=== PATIENT | female | born 1970 | race Caucasian/White ===

== ENCOUNTER 2017-08-04 12:58 | Emergency (ER) | payer MEDICAID, SELFPAY ==
[2017-08-04 12:58] VITALS: BP 135/98; PULSE 106; RESP 14; TEMP 36.7; BMI 33.2
--- NOTE | 2017-08-04 13:33 | ED.VISSUMM ---
- ER Visit Summary Date of Service: 08/04/17 Chief Complaint: Back pain History of Present Illness: The patient is a 46 F who presents with back pain. This is been present for the past 3 days. She does have a history of prior similar symptoms. She notes that she has been walking a lot more lately as she does not currently have a car. She has been using tinazidine and Neurontin as well as ibuprofen at home with minimal relief. She complains of pain radiating into the right buttock hip and thigh. She does have a history of these symptoms as well. No numbness tingling weakness fever abdominal pain urinary retention or fecal incontinence. Physical Examination: Afebrile heart rate 106 vitals otherwise unremarkable Moist mucous membranes Heart regular rhythm slightly tachycardic Lungs are clear Abdomen soft Patient has no reproducible back tenderness Straight leg raise is negative bilaterally Extremities are nontender without edema Normal strength and sensation with 5 out of 5 dorsiflexion, plantarflexion, extensor hallucis longus Test Results: Not indicated Emergency Department Course and Treatment: Given the radicular symptoms we will place the patient on a prednisone burst. She was advised to follow-up with her primary care physician. She understands to return for new or worsening symptoms. She was discharged. Treatment Plan: [] Disposition: Admit Impression: Lumbar radiculopathy This note was generated with [employer] dictation software. It may contain incorrect words, spelling, and punctuation that were not noted in review of the chart prior to signing ED Disposition - Plan for ED Patient: Chief Complaint: Back Referrals: [facility] Doctor,Out of [Primary Care Provider] -
--- NOTE | 2017-08-04 13:35 | ED.DEP ---
ED Disposition - Plan for ED Patient: Chief Complaint: Back Instructions: ED Sciatica Prescriptions: Prednisone [Deltasone] 60 mg PO DAILY #15 tab Referrals: [facility] Doctor,Out of [Primary Care Provider] -
--- NOTE | 2017-08-04 13:49 | ED.RN ---
PT REQUESTING MEDICINE FOR PAIN. DR. BOLAND AWARE, NO NEW ORDER RECEIVED. PT MADE AWARE AND IS VERY UPSET AND CRYING. EMOTIONAL SUPPORT PROVIDED. PT GIVEN DISCHARGE INSTRUCTIONS AND PRESCRIPTION AND SHE STATES I DON'T WANT THIS, THIS ISN'T GOING TO HELP RIGHT NOW. PT CALLING FOR [facility].
[2017-08-04 13:51] VITALS: RESP 18
== END 2017-08-04 13:55 | disposition home or self-care (01) ==
LOC: ED 13:47
PROVIDERS: Emergency Provider Emergency Medicine; Family Provider Physician Assistant; PCP Physician Assistant
DX: M54.16 Radiculopathy, lumbar region (principal); E11.9 Type 2 diabetes mellitus without complications; R00.0 Tachycardia, unspecified; Z79.84 Long term (current) use of oral hypoglycemic drugs; Z79.899 Other long term (current) drug therapy
CPT/HCPCS: 99282

== ENCOUNTER 2017-08-21 18:03 | Emergency (ER) | payer MEDICAID, SELFPAY ==
[2017-08-21 18:04] VITALS: BP 137/109; PULSE 93; RESP 18; TEMP 37.2; O2SAT 98; BMI 33.9
--- NOTE | 2017-08-21 18:26 | ED.VISSUMM ---
- ER Visit Summary Date of Service: 08/21/17 Chief Complaint: Left hand injury History of Present Illness: The patient is a 47 F injury left hand last evening. Reaching under the couch would not get stuck by a staple. Tetanus unknown. States there was squirting of blood initially that was controlled. No anticoagulation medications. Complains of increasing pain. Tylenol Motrin 2 hours ago with no relief. Try getting with PCP office however they were closed. She did see pain management up to 2 months ago for back pain. Her PCP was right in her Percocet, however she states she stopped wanting to take them her last prescription was 2 months ago. Physical Examination: General: Alert and oriented ?3, no acute distress HEENT: Normocephalic, atraumatic. Moist mucosa membranes Neck: supple, nontender. Cardiovascular: Regular rate and rhythm, no murmurs Respiratory: Normal breath sounds, symmetric, no distress Abdomen: Soft, nontender, nondistended Extremities: Left upper extremity: No wrist pain. Left hand dorsal puncture at the proximal second MCP, there was mild erythema around puncture and area ecchymosis of 4 cm elliptical in the hand. Normal sensation distally. No active drainage. No streaking up the arm. Neuro: no focal neurological deficits. Test Results: Left hand x-ray: No fracture or radiopaque foreign bodies Emergency Department Course and Treatment: Patient given oxycodone due to complaint of her symptoms in the ED. X-ray is negative. Wound cleansed by nursing, bacitracin. Bruising was outlined. Discussed wound care with the patient. Monitor for infection. Not infected at this time. Fito wrap provided. Rice therapy. Continue Tylenol or Motrin as needed. Follow-up with PCP. All questions are answered. Treatment Plan: [] Disposition: Discharge Impression: 1. Left hand puncture wound 2. Left hand contusion 3. Tetanus update This note was generated with [employer] dictation software. It may contain incorrect words, spelling, and punctuation that were not noted in review of the chart prior to signing ED Disposition - Plan for ED Patient: Disposition: Home or Assisted Living Chief Complaint: Upper Extremity Injury Diagnosis: Puncture wound of left hand, Contusion of left hand Instructions: ED Wound Puncture General, ED Contusion Hand Referrals: Cherelle Gurrola PA [Primary Care Provider] - 5-7 Days
[2017-08-21] MEDS: Diphth,Pertuss(Acell),Tet Vac 0.5 ML Vial IM (18:38)
[2017-08-21] MEDS: oxyCODONE 5 MG Tablet PO (18:38)
--- NOTE | 2017-08-21 19:34 | RAD_ITS ---
STUDY: X-RAY - LEFT HAND REASON FOR EXAM: Female, 47 years old. Left hand pain. Stabbing injury to the top of the hand TECHNIQUE: 3 view(s) of the hand. COMPARISON: None. FINDINGS: Normal radiocarpal articulation. Normal distal radioulnar joint. Normal visualized carpal bones. Normal carpal articulations Normal carpometacarpal articulation of the thumb. Normal second through fifth carpometacarpal joints. Normal metacarpi. Normal metacarpophalangeal joint of the thumb. Normal interphalangeal joint of the thumb. Normal proximal and distal phalanges of the thumb. Normal metacarpophalangeal joints of the second through fifth fingers. Normal proximal and distal interphalangeal joints of the second through fifth fingers. Normal phalanges of the second through fifth fingers. The soft tissue structures are unremarkable. RAD/Hand Min 3 Views IMPRESSION: No acute findings Electronically Signed: Krzysztof Chahal DO at 18:58 EDT Tel , Service support ,
[2017-08-21] MEDS: BACITRACIN 15 GM Tube 1 APPLIC TOPICAL (19:37)
--- NOTE | 2017-08-21 19:39 | ED.RN ---
WOUND NOT CLEANED PER PT, ASKED WHAT WOULD BE USED TO CLEAN WOUND, THIS RN ADVISED NORMAL SALINE, PT DECLINED STAING SHE WOULD CLEAN HERSELF WITH PEROXIDE AT HOME. WOUND COVERED WITH SCAB, NO BLEEDING OR DRAINAGE, MEASURES 0.5 CM.
== END 2017-08-21 19:44 | disposition home or self-care (01) ==
PROVIDERS: Emergency Provider Emergency Medicine; Family Provider Physician Assistant; PCP Physician Assistant
DX: S61.432A Puncture wound without foreign body of left hand, initial encounter (principal); S60.222A Contusion of left hand, initial encounter; W26.8XXA Contact with other sharp object(s), not elsewhere classified, initial encounter; Y93.9 Activity, unspecified; Y92.9 Unspecified place or not applicable; Y99.9 Unspecified external cause status; Z23 Encounter for immunization; E11.9 Type 2 diabetes mellitus without complications; M54.9 Dorsalgia, unspecified; Z79.84 Long term (current) use of oral hypoglycemic drugs; Z79.899 Other long term (current) drug therapy
CPT/HCPCS: 73130; 90471; 90715; 99282

== ENCOUNTER 2021-12-02 12:37 | Emergency (ER) | payer MEDICAID, SELFPAY ==
[2021-12-02 12:37] VITALS: BP 119/94; PULSE 77; RESP 18; TEMP 35.9; O2SAT 99; BMI 34.8
--- NOTE | 2021-12-02 12:49 | EKG12_ITS ---
Test Reason : CP Blood Pressure : / mmHG Vent. Rate : 072 BPM Atrial Rate : 072 BPM P-R Int : 178 ms QRS Dur : 078 ms QT Int : 374 ms P-R-T Axes : 039 -06 024 degrees QTc Int : 409 ms Normal sinus rhythm Normal ECG Confirmed by ANTOINETTE ROMEO, STEFFI ([id number]), scientific editor KARRI KRAUS ([id number]) on 12/05/2021 10:12:19 AM Referred By: ES/PL Confirmed By:STEFFI CURRY MD
--- NOTE | 2021-12-02 13:05 | RAD_ITS ---
STUDY: X-RAY CHEST REASON FOR EXAM: Female, 51 years old. one time TECHNIQUE: Single AP portable view of the chest. COMPARISON: 08/27/2015 FINDINGS: The lungs are clear and expanded. There is no demonstrated pleural abnormality. Normal size heart. Normal mediastinum and isra. Normal visualized pulmonary arteries. Normal visualized aortic arch and descending thoracic aorta. Normal visualized thoracic spine. Normal visualized ribs, clavicles, and shoulders. There is no demonstrated abnormality of the visualized soft tissue structures of the upper abdomen. RAD/Chest 1 View (Portable) IMPRESSION: Normal x-ray examination of the chest. Electronically Signed: Germán Fields MD at 13:29 EDT ,
--- NOTE | 2021-12-02 13:05 | EX.ED.DYSGE1 ---
HPI <NOLVIA Corey - Last Filed: 12/02/21 14:45> History of Present Illness Chief Complaint: Chest Pain Narrative Narrative: 51-year-old female with history of anxiety, depression, diabetes presents to the emergency department with 2 to 3 days of sternal chest pain, left-sided chest pain. Patient had a positive COVID-19 test 6 days ago, states that she has been coughing, body aches, congestion. She called her doctor because she been having increased chest pain to the midsternal area as well as to the left side and he told her to go in for evaluation to the emergency department. Patient denies any fevers or chills. Patient [place] any nausea or vomiting. PFS <NOLVIA Corey - Last Filed: 12/02/21 14:45> [facility] Medical History (Updated 12/02/21 @ 14:[address] Barry Ramos, DO) COVID Home Medications gabapentin 300 mg capsule 900 mg PO TIDCM 06/10/14 [History Last Taken Unknown] tizanidine 4 mg tablet 6 mg PO PRN PRN Pain 08/13/16 [History Last Taken Unknown] buspirone 5 mg tablet 15 mg PO TID 03/03/17 [History Last Taken Unknown] fluoxetine 20 mg capsule (Prozac) 40 mg PO DAILY 08/04/17 [History Last Taken Unknown] metformin 500 mg 24 hr tablet,extended release 500 mg PO DAILY 08/04/17 [History Last Taken Unknown] Allergy/AdvReac Type Severity Reaction Status Date / Time STEFF Inhibitors Allergy Other Verified 12/02/21 12:41 amoxicillin trihydrate Allergy Itching Verified 12/02/21 12:41 [From Augmentin] lisinopril Allergy Other Verified 12/02/21 12:41 potassium clavulanate Allergy Itching Verified 12/02/21 12:41 [From Augmentin] ibuprofen AdvReac Other Verified 12/02/21 12:41 Social History Smoking Status: Former smoker ROS <NOLVIA Corey - Last Filed: 12/02/21 14:45> ROS ED ROS Narrative Constitutional: Negative for fever, chills, weight loss, weakness Eyes: Negative for vision loss, vision change, double vision ENT: Negative for any sore throat, ear pain, congestion Cardiovascular: Negative for any tightness, palpitations. Positive for midsternal to left-sided chest pain Respiratory: Negative for any cough, sputum production, hemoptysis, dyspnea, dyspnea on exertion, orthopnea Gastrointestinal: Negative for any abdominal pain, nausea, vomiting, diarrhea, constipation, blood in stool, blood in vomit : Negative for any urinary frequency, dysuria, retention, blood in urine Muscle skeletal: Negative for any muscle joint pain, stiffness, myalgias, arthralgias, neck pain, back pain Neurological: Negative for any headache, syncope, numbness or tingling, dizziness Skin: Negative for any rashes, lumps, itching, abrasions, lacerations Psychiatric: Negative for any depression, anxiety, stress, suicidal ideation, homicidal ideation Hematologic: Negative for any easy bruising, excessive bruising, easy bleeding Allergies: Negative for any eczema, hives, rash EXAM <NOLVIA Corey - Last Filed: 12/02/21 14:45> Physical Exam Narrative Exam Narrative: Vital signs reviewed. Patient appears to be in no respiratory distress, patient is stable. HEET: Head normocephalic atraumatic, TMs clear bilaterally. Posterior pharynx is clear, moist mucous membranes. Nares clear bilaterally. Neck: Supple with no lymphadenopathy or tenderness. No signs of meningismus, negative jolt sign. Cardiac: Regular rate and rhythm no murmurs gallops or rubs, equal peripheral pulses bilaterally. Respiratory: Lungs clear to auscultation bilaterally. No chest tenderness. Abdomen: Soft, nontender, nondistended. No abdominal bruit or pulsatile masses. No hepatosplenomegaly Extremities: No peripheral edema, no signs of gross trauma or deformity. Active full range of motion of all extremities. Neuro: Cranial nerves II through XII intact, no focal neurological deficits. Skin: Clean dry and intact with no rash, purpura, petechiae, vesicles or pustules. Backs/flank: No CVA tenderness, no midline spinal tenderness, no deformity. Psych: Normal mood and affect. No SI, HI or acute psychosis. Const Vital Signs: 12/02/21 12:37 12/02/21 13:18 Temperature 96.6 F L Temperature Source Temporal Pulse Rate 77 Respiratory Rate 18 Respiratory Effort Normal Non-Labored Blood Pressure 119/94 H Blood Pressure Mean 102 Pulse Ox 99 Oxygen Delivery Method Room Air Positive well nourished and well developed General Appearance ED: well developed <Dr. Barry Ramos, DO - Last Filed: 12/02/21 14:47> Physical Exam Const Vital Signs: 12/02/21 12:37 12/02/21 13:18 Temperature 96.6 F L Temperature Source Temporal Pulse Rate 77 Respiratory Rate 18 Respiratory Effort Normal Non-Labored Blood Pressure 119/94 H Blood Pressure Mean 102 Pulse Ox 99 Oxygen Delivery Method Room Air MDM <NOLVIA Corey - Last Filed: 12/02/21 14:45> MDM Lab Data Labs: Laboratory Results - last 24 hr 12/02/21 12/02/21 13:20 13:20 WBC 6.0 RBC 4.38 Hgb 14.1 Hct 40.3 MCV 92.0 MCH 32.2 H MCHC 35.0 RDW Std Deviation 41.9 RDW Coeff of Julian 12.3 Plt Count 187 MPV 10.7 Immature Gran % (Auto) 0.200 Neut % (Auto) 32.7 L Lymph % (Auto) 57.3 H Day % (Auto) 6.5 Eos % (Auto) 3.0 Baso % (Auto) 0.3 Absolute Neuts (auto) 2.0 Absolute Lymphs (auto) 3.43 Nucleated RBC % 0 Atypical Lymphocytes 2+ Platelet Estimate ADEQUATE RBC Morphology NORM C+C Sodium 137 Potassium 4.1 Chloride 105 Carbon Dioxide 26.0 Anion Gap 6 BUN 11 Creatinine 0.80 Estim Creat Clear Calc 95.08 Est GFR (MDRD) Af Amer 98 Est GFR (MDRD) Non-Af 81 BUN/Creatinine Ratio 13.8 Glucose 183 H Calcium 8.3 L Troponin I High Sens 4 Radiography Diagnostic Testing: Clinical Impression(s) from Imaging Studies Chest X-Ray 12/02/21 13:05 IMPRESSION: Normal x-ray examination of the chest. Electronically Signed: Germán Fields MD at 13:29 EDT , EKG Normal sinus rhythm: Attestation: I personally reviewed and interpreted this EKG as follows: Interpretation: Sinus Rhythm Comments: Normal sinus rhythm, rate of 72 bpm, TX 178 ms, QRS duration 78 ms, no acute ST elevation, no acute infarct noted. Treatment and Re-Evaluation Narrative: Patient appears well, patient appears nontoxic, vital signs are stable. Patient presents to the [facility] with midsternal chest discomfort for the last 2 days secondary to coughing, however she is concerned about a cardiac issue. Patient did receive a cardiac work-up.Patient's laboratory values show a normal CBC, patient's chemistries were unremarkable, patient's troponin was negative. EKG was unremarkable, showing no ectopy, [place]. Patient's chest x-ray showed no acute cardiopulmonary process entered by ER physician. Patient did receive IV Toradol, IV fluids. Patient on reevaluation did have decrease of symptoms. I believe the patient is having chest wall strain secondary to coughing secondary to the COVID. Patient will continue to use Tylenol, as well as maintain her hydration. She is happy with the plan of care instructed return for any worsening chest pain, shortness of breath. Patient is currently 6 days out of the window for any treatment such as Paxil bid. <Dr. Barry Ramos, DO - Last Filed: 12/02/21 14:47> [facility] Narrative Medical decision making narrative: I have personally performed a face to face assessment of the patient and have reviewed the KB Note. I performed a substantive portion of the visit including all aspects of the following. My salgado findings include: History: Patient presents with chest pain that became worse today. Patient states her pain is over her upper chest. Patient states it started out bilaterally but is now mainly over the left upper chest. Patient states it is worse with coughing. Patient denies any shortness of breath. Patient states she recently tested positive for COVID-19. Patient denies any fevers or chills. Patient denies any nausea or vomiting. Exam: Vital signs are stable. Patient is afebrile. Patient is in no acute distress. Oral mucosa is pink and moist. Neck is supple. Trachea is midline. There is no JVD. Heart was regular rate and rhythm. Lungs are clear and equal bilaterally. There is some reproducible tenderness over the left upper chest wall. Abdomen is soft. Bowel sounds are normal. There is no tenderness. Cranial nerves II through XII are intact. There are no focal motor or sensory deficits. Medical Decision Making: EKG was obtained. On my interpretation, it shows a normal sinus rhythm with a rate of 78. There are no acute ST or T wave changes. CBC was within normal limits. Basic metabolic profile was essentially within normal limits with the exception of an elevated glucose of 183. High-sensitivity troponin was normal. Portable 1 view chest x-ray was obtained. On my interpretation, lung lindsey are clear. There is normal cardiac silhouette. Bony thorax is normal. There is no acute process noted. Radiologist also interpreted the x-ray and agrees. Patient was advised of her findings. Patient has a HEART score of 2. Patient was advised that this is low risk for acute cardiac event. Patient was instructed to follow-up with her primary care physician in 5 to 7 days. Patient understood and was agreeable with the plan. All questions were answered. Lab Data Attestation: I reviewed the patient's lab results. Labs: Laboratory Results - last 24 hr 12/02/21 12/02/21 13:20 13:20 WBC 6.0 RBC 4.38 Hgb 14.1 Hct 40.3 MCV 92.0 MCH 32.2 H MCHC 35.0 RDW Std Deviation 41.9 RDW Coeff of Julian 12.3 Plt Count 187 MPV 10.7 Immature Gran % (Auto) 0.200 Neut % (Auto) 32.7 L Lymph % (Auto) 57.3 H Day % (Auto) 6.5 Eos % (Auto) 3.0 Baso % (Auto) 0.3 Absolute Neuts (auto) 2.0 Absolute Lymphs (auto) 3.43 Nucleated RBC % 0 Atypical Lymphocytes 2+ Platelet Estimate ADEQUATE RBC Morphology NORM C+C Sodium 137 Potassium 4.1 Chloride 105 Carbon Dioxide 26.0 Anion Gap 6 BUN 11 Creatinine 0.80 Estim Creat Clear Calc 95.08 Est GFR (MDRD) Af Amer 98 Est GFR (MDRD) Non-Af 81 BUN/Creatinine Ratio 13.8 Glucose 183 H Calcium 8.3 L Troponin I High Sens 4 Radiography Chest X-Ray - ED: 1 View, Read by ED Physician, Read by Radiologist, Normal and No Acute Disease Diagnostic Testing: Clinical Impression(s) from Imaging Studies Chest X-Ray 12/02/21 13:05 IMPRESSION: Normal x-ray examination of the chest. Electronically Signed: Germán Fields MD at 13:29 EDT , Discharge Plan Triage Chief Complaint: Chest Pain ED Midlevel Provider: Austen Garcia ED Provider: Barry Ramos Dx/Rx/DC Orders Clinical Impression: COVID-19, Chest wall muscle strain, Cough, Chest pain Instructions: Caring for Someone Who Has COVID-19, ED Cough Chronic Uncertain Cause Adult, ED Chest Wall Strain Prescriptions: No Action gabapentin 300 MG capsule 900 mg PO TIDCM Label Comments: neuropathy/pain tizanidine 4 MG tablet 6 mg PO PRN PRN (Reason: Pain) buspirone 5 MG tablet 15 mg PO TID fluoxetine [Prozac] 20 MG capsule 40 mg PO DAILY metformin 500 MG [id number] 500 mg PO DAILY Primary Care Provider: Cherelle Gurrola Referrals: Cherelle Gurrola PA [Primary Care Provider] - 5-7 Days Activity Restrictions/Additional Instructions: Maintain hydration, please follow-up with your physician. Use Tylenol as needed. Perform gentle stretching. Disposition Disposition: Home, Self Care
[2021-12-02] MEDS: 0.9% Normal Saline 1,000 ML 1000 ML IV (13:16)
[2021-12-02] MEDS: Ketorolac 15 MG/ML Vial IV (13:16)
[2021-12-02 13:34] LABS: Absolute Lymphocyte Count 3.43 X10^3/uL (0.83-4.51); Basophil# 0.02 X10^3/uL; Basophil% 0.3 % (0-1); Eosinophil# 0.18 X10^3/uL; Hematocrit 40.3 % (37-47); Hemoglobin 14.1 g/dL (12.0-15.0); Lymphocyte # 3.43 X10^3/ul (0.83-4.51); Lymphocyte % 57.3 % (19-41); Mean Corpuscular Hgb 32.2 pg (27.0-32.0); Mean Platelet Vol. 10.7 fl (6.2-12.0); Monocyte# 0.39 X10^3/uL; Monocyte% 6.5 % (0-10); NRBC Flagged by Analyzer 0 % (0-5); Neutrophil # 1.96 X10^3/uL (2.7-7.7); Neutrophil % 32.7 % (47-70); POSITIVE MORPHOLOGY YES; Platelet Count 187 K/mm3 (150-450); RBC Distribution Width CV 12.3 % (11.6-14.6); RBC Distribution Width SD 41.9 fl (35.1-43.9); Red Blood Count 4.38 M/mm3 (4.2-5.4)
[2021-12-02 13:44] LABS: Differential Indicated SCAN CRITERIA MET
[2021-12-02 13:48] LABS: Anion Gap 6 (5-15); BUN 11 mg/dL (7-18); BUN/Creat Ratio 13.8 RATIO (10-20); Calcium,Total 8.3 mg/dL (8.5-10.1); Chloride 105 mmol/L (98-107); EST Glomerular Filtration Rate 81 mL/min (>60); Est Glom Filt Rate - Afr Amer 98 mL/min (>60); Estimated Creatinine Clearance 95.08 ml/min; Glucose 183 mg/dL (74-106); Potassium 4.1 mmol/L (3.5-5.1); Sodium Level 137 mmol/L (136-145); Troponin-I HS 4 pg/mL (3.0-54.0)
[2021-12-02 14:41] LABS: Atypical Lymphocyte 2+ %
[2021-12-02 14:42] LABS: Platelet Estimate ADEQUATE (ADEQ); Red Cell Morphology NORM C+C NORMAL (NORM C&C)
== END 2021-12-02 14:56 | disposition home or self-care (01) ==
PROVIDERS: Nurse Practitioner; Emergency Provider Emergency Medicine; PCP Physician Assistant; Visit Provider Emergency Medicine
DX: U07.1 COVID-19 (principal); E11.9 Type 2 diabetes mellitus without complications; S29.011A Strain of muscle and tendon of front wall of thorax, initial encounter; X58.XXXA Exposure to other specified factors, initial encounter; F32.A Depression, unspecified; F41.9 Anxiety disorder, unspecified; Z79.84 Long term (current) use of oral hypoglycemic drugs; Z79.899 Other long term (current) drug therapy; Z87.891 Personal history of nicotine dependence
CPT/HCPCS: 71045; 80048; 84484; 85025; 93005; 96361; 96374; 99284; J7030; A4216

== ENCOUNTER 2021-12-25 14:54 | Emergency (ER) | payer MEDICAID, SELFPAY ==
[2021-12-25 15:02] VITALS: BP 133/92; PULSE 77; RESP 7; TEMP 36.3; O2SAT 97; BMI 34.8
--- NOTE | 2021-12-25 15:30 | RAD_ITS ---
STUDY: X-RAY - THORACIC SPINE REASON FOR EXAM: Female, 51 years old. fall back pain TECHNIQUE: XR Spine Thoracic 3 Views COMPARISON: None FINDINGS: Normal kyphosis of the thoracic spine. There is no substantial scoliosis. There is multilevel endplate spondylosis of the thoracic vertebrae. There is multilevel disc space narrowing of the thoracic spine. The soft tissue structures are unremarkable. RAD/Thoracic Spine 3 Views IMPRESSION: There are degenerative changes as noted above. Electronically Signed: Nirmal Moss MD at 16:34 EDT ,
--- NOTE | 2021-12-25 15:30 | RAD_ITS ---
STUDY: X-RAY XR Forearm 2 Views REASON FOR EXAM: Female, 51 years old. PAIN TECHNIQUE: XR Forearm 2 Views LEFT COMPARISON: None. FINDINGS: There is no demonstrated soft tissue swelling. Normal visualized radius. Normal visualized ulna. RAD/Forearm 2 Views IMPRESSION: No acute findings Electronically Signed: Nirmal Moss MD at 16:34 EDT ,
--- NOTE | 2021-12-25 15:30 | RAD_ITS ---
STUDY: XR Pelvis 1 or 2 Views 12/25/2021 3:45 PM REASON FOR EXAM: Female, 51 years old. fall pain TECHNIQUE: XR Pelvis 1 or 2 Views COMPARISON: None FINDINGS: There is a non-specific bowel gas pattern. Normal visualized soft tissue structures.There are degenerative changes of the lumbar spine. Normal bilateral iliac wings, sacroiliac joints and visualized sacrum. Normal visualized bilateral superior and inferior pubic rami. There are degenerative changes of the pubic symphysis with articular narrowing and sclerosis. Normal ischial tuberosities. Normal visualized right femoral head. Normal right acetabulum. Normal right hip joint. Normal visualized left femoral head. Normal left acetabulum. Normal left hip joint. RAD/Pelvis 1 or 2 Views IMPRESSION: No acute findings. Electronically Signed: Nirmal Moss MD at 16:29 EDT ,
--- NOTE | 2021-12-25 15:30 | RAD_ITS ---
STUDY: X-RAY - LUMBAR SPINE REASON FOR EXAM: Female, 51 years old. Back pain fall TECHNIQUE: XR Spine Lumbar 2 or 3 Views COMPARISON: None FINDINGS: Normal lumbar lordosis. There is no substantial scoliosis. There is a normal alignment of the vertebrae. There is multilevel endplate spondylosis of the lumbar vertebrae. There is multi-level degenerative disc disease with multi-level disc space narrowing. There are atherosclerotic vascular calcifications. The soft tissue structures are unremarkable. Vacuum disc phenomenon. RAD/Lumbar Spine 2 or 3 Views IMPRESSION: Degenerative changes of the spine, as detailed above. Electronically Signed: Nirmal Moss MD at 16:33 EDT ,
--- NOTE | 2021-12-25 15:30 | RAD_ITS ---
EXAM: XR RIGHT TIBIA AND FIBULA, 2 VIEWS CLINICAL INDICATION: fall pain TECHNIQUE: Frontal and lateral views of the right tibia and fibula. This report was created using [employer] technology. COMPARISON: None. FINDINGS: BONES/JOINTS: There is a calcaneal spur. There is an enthesophyte involving the posterior superior calcaneus at the site of insertion of the Achilles tendon. No acute fracture. No subluxation. Normal alignment. Preservation of the joint space. No sclerotic or destructive changes observed. SOFT TISSUES: Mild soft tissue swelling around the lateral malleolus. No radiopaque foreign body. RAD/Tibia & Fibula 2 Views IMPRESSION: Mild soft tissue swelling around the lateral malleolus. Electronically Signed: Nirmal Moss MD at 16:35 EDT ,
--- NOTE | 2021-12-25 15:32 | ED.VIS.FALL ---
HPI HPI - Fall History of Present Illness Chief Complaint: Fall Informant: patient Occured/Mechanism Occurred: Today Pain/Injury Pain Location: back, upper extremity and lower extremity Current Severity: Moderate Maximum Severity: Severe Narrative Narrative: Patient presents after fall at a local store. She states that she fell on a wet floor landing on her right hip and trying to brace herself with her left arm. She complains of pain from her right hip down to her right ankle along with her left forearm. She complains of back pain throughout the thoracic and lumbar region. She denies striking her head or loss of consciousness. She takes baby aspirin daily but no other blood thinners. [facility] Medical History Anxiety COVID Depression Diabetes Former smoker Hypertension Home Medications gabapentin 300 mg capsule 600 mg PO TIDCM 06/10/14 [History Last Taken Unknown] fluoxetine 20 mg capsule (Prozac) 40 mg PO DAILY 08/04/17 [History Last Taken Unknown] metformin 500 mg 24 hr tablet,extended release 1,000 mg PO DAILY 08/04/17 [History Last Taken Unknown] aspirin 81 mg tablet,delayed release 81 mg PO DAILY 12/25/21 [History Last Taken Unknown] atorvastatin 40 mg tablet 40 mg PO QHS 12/25/21 [History Last Taken Unknown] cyclobenzaprine 10 mg tablet 10 mg PO BID PRN muscle spasm #10 tabs 12/25/21 [Rx Last Taken Unknown] glimepiride 1 mg tablet 1 mg PO DAILY 12/25/21 [History Last Taken Unknown] hydrocodone-acetaminophen 5-325mg 5mg-325mg 1 tab PO Q6H PRN pain 3 days #10 tabs 12/25/21 [Rx Last Taken Unknown] loratadine 10 mg tablet 10 mg PO DAILY 12/25/21 [History Last Taken Unknown] metoprolol succinate 25 mg tablet,extended release 24 hr 25 mg PO DAILY 12/25/21 [History Last Taken Unknown] ranolazine 500 mg tablet,extended release,12 hr 500 mg PO BID 12/25/21 [History Last Taken Unknown] Allergy/AdvReac Type Severity Reaction Status Date / Time FITO Inhibitors Allergy wheezing Verified 12/25/21 14:57 amoxicillin trihydrate Allergy Itching Verified 12/25/21 14:57 [From Augmentin] lisinopril Allergy wheezing Verified 12/25/21 14:57 potassium clavulanate Allergy Itching Verified 12/25/21 14:57 [From Augmentin] ibuprofen AdvReac Other Verified 12/25/21 14:57 Surgical History History of cholecystectomy History of hysterectomy Social History Smoking Status: Former smoker ROS ROS ED Constitutional Constitutional ED: Denies chills or fever(s) Eyes Eyes: Denies change in vision or discharge from eye(s) ENT ENT ED: Denies discharge from eye(s), rhinorrhea or sore throat Cardiovascular Cardiovascular: Denies chest pain or palpitations Respiratory/Chest Respiratory/Chest: Denies cough or dyspnea Gastrointestinal Gastrointestinal: Denies abdominal pain, diarrhea, nausea or vomiting Genitourinary Genitourinary ED: Denies difficulty urinating or dysuria Musculoskeletal Musculoskeletal: Reports arthralgias, back pain and extremity pain Integumentary Denies Abrasions or rash Neurologic Neurologic: Denies headache(s) or weakness Psychiatric Psychiatric: Denies anxiety or depression Allergic/Immunologic Allergic/Immunologic ED: Denies lip swelling or urticaria EXAM Physical Exam Const Vital Signs: 12/25/21 15:02 12/25/21 15:18 Temperature 97.3 F L Temperature Source Temporal Pulse Rate 77 Respiratory Rate 7 L Respiratory Effort Normal Respiratory Depth Normal Respiratory Pattern Normal Blood Pressure 133/92 H Blood Pressure Mean 105 Pulse Ox 97 Oxygen Delivery Method Room Air Room Air Positive well nourished and well developed General Appearance ED: well developed HEENT Reports normocephalic and head/scalp atraumatic Eyes PERRL and EOMs intact bilaterally Neck supple Chest Wall inspection of chest normal and palpation of chest normal Resp normal respiratory effort and clear to auscultation bilaterally Cardio regular rate and regular rhythm GI normal to inspection, nondistended, normoactive bowel sounds Palpation: soft Back/Spine Back/Spine Narrative: Tenderness of patient throughout the thoracic and lumbar spine. No focal midline point tenderness. No abrasions or ecchymosis. Extremity Extremity Narrative: Mild muscular tenderness in the left forearm. Slightly weakened left hand grasp secondary to pain. No tenderness at the shoulder. Right lower extremity examination feels muscular tenderness throughout the thigh and lower leg. No deformity noted. Good distal pulses and sensation. Neuro oriented x3 and no sensory deficits noted Neuro Narrative: No focal neurologic deficit. Sensorium / Orientation: alert Psych Mood & Affect: tearful Skin no rashes or lesions noted MDM MDM MDM Narrative Medical decision making narrative: Patient is given morphine, Zofran, Flexeril for pain and spasm. X-rays of the thoracic and lumbar spine obtained. X-rays of the pelvis, right femur, right tib-fib obtained along with left forearm. Radiography Diagnostic Testing: Clinical Impression(s) from Imaging Studies Forearm X-Ray 12/25/21 15:30 IMPRESSION: No acute findings Electronically Signed: Nirmal Moss MD at 16:34 EDT , Lumbar Spine X-Ray 12/25/21 15:30 IMPRESSION: Degenerative changes of the spine, as detailed above. Electronically Signed: Nirmal Moss MD at 16:33 EDT , Pelvis X-Ray 12/25/21 15:30 IMPRESSION: No acute findings. Electronically Signed: Nirmal Moss MD at 16:29 EDT , Thoracic Spine X-Ray 12/25/21 15:30 IMPRESSION: There are degenerative changes as noted above. Electronically Signed: Nirmal Moss MD at 16:34 EDT , Tibia/Fibula X-Ray 12/25/21 15:30 IMPRESSION: Mild soft tissue swelling around the lateral malleolus. Electronically Signed: Nirmal Moss MD at 16:35 EDT , Femur X-Ray 12/25/21 15:38 IMPRESSION: Negative right femur x-rays. Electronically Signed: Nirmal Moss MD at 16:33 EDT , Treatment and Re-Evaluation Narrative: X-rays are all reviewed by myself. I did see a slight shadow line on the distal radius of the left forearm, however I do believe this is a vascular marking. Radiology read all films and do not see any evidence of acute fracture. There is some soft tissue swelling noted over the lateral malleolus of the right ankle. Test results are discussed with the patient. Fito wrap is applied to the right ankle as well as left wrist. She will be treated with [place] and Flexeril at home for pain. Discharge Plan Triage Chief Complaint: Fall ED Provider: Awilda Victor Dx/Rx/DC Orders Clinical Impression: Fall, Left wrist sprain, Right ankle sprain, Back contusion Instructions: ED Back Contusion, ED Mechanical Fall, ED Wrist Sprain, ED Ankle Sprain (Adult) Prescriptions: New hydrocodone-acetaminophen 5-325 mg tablet 1 tab PO Q6H PRN (Reason: pain) 3 Days Qty: 10 0RF cyclobenzaprine 10 mg tablet 10 mg PO BID PRN (Reason: muscle spasm) Qty: 10 0RF No Action gabapentin 300 MG capsule 600 mg PO TIDCM Label Comments: neuropathy/pain fluoxetine [Prozac] 20 MG capsule 40 mg PO DAILY metformin 500 MG tablet,ER angela.retention 24 hr 1,000 mg PO DAILY atorvastatin 40 mg tablet 40 mg PO QHS Label Comments: take 1 tablet by mouth once daily aspirin 81 mg tablet,delayed release (DR/EC) 81 mg PO DAILY glimepiride 1 mg tablet 1 mg PO DAILY Label Comments: take 1 tablet by mouth daily with breakfast metoprolol succinate 25 mg tablet extended release 24 hr 25 mg PO DAILY Label Comments: take 1 tablet by mouth once daily loratadine 10 mg tablet 10 mg PO DAILY ranolazine 500 mg tablet extended release 12 hr 500 mg PO BID Label Comments: take 1 tablet by mouth twice a day Primary Care Provider: Cherelle Gurrola Referrals: Cherelle Gurrola, PA [Primary Care Provider] - 1 Week if not improving Disposition Disposition: Home, Self Care
--- NOTE | 2021-12-25 15:38 | RAD_ITS ---
EXAM: XR RIGHT FEMUR, 2 VIEWS CLINICAL INDICATION: fall TECHNIQUE: Frontal and lateral views of the right femur. This report was created using [employer] report generation technology. COMPARISON: None. FINDINGS: BONES/JOINTS: Unremarkable. No acute fracture. No subluxation. Normal alignment. Preservation of the joint space. No sclerotic or destructive changes observed. SOFT TISSUES: Unremarkable. No soft tissue swelling or gas. No radiopaque foreign body. RAD/Femur Min 2 Views IMPRESSION: Negative right femur x-rays. Electronically Signed: Nirmal Moss MD at 16:33 EDT ,
[2021-12-25] MEDS: morphine 10 MG/ML Syringe IM (15:39)
[2021-12-25] MEDS: cycloBENZAPRine HCl 10 MG Tablet PO (15:39)
[2021-12-25] MEDS: Ondansetron ODT 4 MG Tablet PO (15:39)
--- NOTE | 2021-12-25 15:53 | ED.RN ---
called to child room. pt was laying in bed relaxed. upon entering pt through partially closed eyelids track my movement acroses the room and to bedside at which point he lend to the side of the bed is was on and started twitching. no loss of bowel or bladder control noted. withdrew from pressure applied to nail bed. child became relaxed again and suddenly reached for his throat and made a gagging nose then began to tremor again. vitals and airway monitored during event without change from baseline. child instructed to stop and sudden became more aware. he asked how long I had be present in the room and he was instructed that i was present the whole time. he was able to hold a conversation with this nurse. child instructed that when he gags and begins shaking that he is scaring his care provider. guardian instructed that patient behavior isn't congruent with standard seizure like activity. dr informed about patient behavior and conversation with grandfather. no further orders placed and no change made to plan of care. garret parks rn [id number]
[2021-12-25 17:10] VITALS: BP 142/89; PULSE 78; RESP 15; O2SAT 99
== END 2021-12-25 17:11 | disposition home or self-care (01) ==
PROVIDERS: Emergency Provider Emergency Medicine; PCP Physician Assistant; Visit Provider Emergency Medicine
DX: S20.229A Contusion of unspecified back wall of thorax, initial encounter (principal); E11.9 Type 2 diabetes mellitus without complications; S93.401A Sprain of unspecified ligament of right ankle, initial encounter; W01.0XXA Fall on same level from slipping, tripping and stumbling without subsequent striking against object, initial encounter; Y92.512 Supermarket, store or market as the place of occurrence of the external cause; S93.402A Sprain of unspecified ligament of left ankle, initial encounter; S63.502A Unspecified sprain of left wrist, initial encounter; I10 Essential (primary) hypertension; F32.A Depression, unspecified; F41.9 Anxiety disorder, unspecified; Z79.82 Long term (current) use of aspirin; Z79.84 Long term (current) use of oral hypoglycemic drugs; Z79.899 Other long term (current) drug therapy; Z87.891 Personal history of nicotine dependence
CPT/HCPCS: 72070; 72072; 72100; 72170; 73090; 73552; 73590; 96372; 99284

== ENCOUNTER 2021-12-30 13:31 | Emergency (ER) | payer MEDICAID, SELFPAY ==
[2021-12-30 13:31] VITALS: BP 139/107; PULSE 82; RESP 18; TEMP 36.1; O2SAT 97; BMI 34.8
--- NOTE | 2021-12-30 14:00 | RAD_ITS ---
STUDY: X-RAY - RIGHT ANKLE REASON FOR EXAM: Female, 51 years old. Persistent pain following a fall. TECHNIQUE: 3 view(s) of the ankle. COMPARISON: Comparison is made with prior study dated 12/25/2021. FINDINGS: Normal visualized distal tibia and fibula. Normal medial and lateral malleoli. Normal tibiotalar articulation and ankle mortise. Calcaneal spurs. The visualized subtalar, talonavicular, calcaneocuboid and tarsal articulations are normal. Soft tissue swelling overlying the lateral malleolus. No fracture seen. RAD/Ankle min 3 Views IMPRESSION: Persistent soft tissue swelling overlying the lateral malleolus. Electronically Signed: Norris Kang MD at 14:27 EDT ,
--- NOTE | 2021-12-30 14:08 | EX.ED.DYSGE1 ---
HPI History of Present Illness Chief Complaint: Lower Extremity Injury Narrative Narrative: Patient presents with right ankle pain, she sustained a mechanical fall a few days ago and had x-rays were unremarkable but has worse pain. She has no new injuries. She is denying any paresthesias. She is able to ambulate although she has some difficulty. [facility] Medical History Anxiety COVID Depression Diabetes Former smoker Hypertension Medical History no medical history Home Medications gabapentin 300 mg capsule 600 mg PO TIDCM 06/10/14 [History Last Taken Unknown] fluoxetine 20 mg capsule (Prozac) 40 mg PO DAILY 08/04/17 [History Last Taken Unknown] metformin 500 mg 24 hr tablet,extended release 1,000 mg PO DAILY 08/04/17 [History Last Taken Unknown] aspirin 81 mg tablet,delayed release 81 mg PO DAILY 12/25/21 [History Last Taken Unknown] atorvastatin 40 mg tablet 40 mg PO QHS 12/25/21 [History Last Taken Unknown] cyclobenzaprine 10 mg tablet 10 mg PO BID PRN muscle spasm #10 tabs 12/25/21 [Rx Last Taken Unknown] glimepiride 1 mg tablet 1 mg PO DAILY 12/25/21 [History Last Taken Unknown] hydrocodone-acetaminophen 5-325mg 5mg-325mg 1 tab PO Q6H PRN pain 3 days #10 tabs 12/25/21 [Rx Last Taken Unknown] loratadine 10 mg tablet 10 mg PO DAILY 12/25/21 [History Last Taken Unknown] metoprolol succinate 25 mg tablet,extended release 24 hr 25 mg PO DAILY 12/25/21 [History Last Taken Unknown] ranolazine 500 mg tablet,extended release,12 hr 500 mg PO BID 12/25/21 [History Last Taken Unknown] Allergy/AdvReac Type Severity Reaction Status Date / Time STEFF Inhibitors Allergy wheezing Verified 12/30/21 13:33 amoxicillin trihydrate Allergy Itching Verified 12/30/21 13:33 [From Augmentin] lisinopril Allergy wheezing Verified 12/30/21 13:33 potassium clavulanate Allergy Itching Verified 12/30/21 13:33 [From Augmentin] ibuprofen AdvReac Other Verified 12/30/21 13:33 Surgical History History of cholecystectomy History of hysterectomy Social History Smoking Status: Former smoker ROS ROS ED ROS Narrative Past medical history: Noncontributory Medications: Reviewed Social history: Noncontributory Review of systems: Musculoskeletal: Right ankle pain, she has some right knee pain but it significantly improved, she has left wrist pain also significantly improved. Skin: No abrasions or lacerations Neurological: No weakness or paresthesias Hematologic: No easy bleeding or easy bruising EXAM Physical Exam Narrative Exam Narrative: Physical exam General: Patient does not appear in significant distress . Head: Normocephalic, Atraumatic Neck: No C-spine tenderness Cardiovascular: Normal distal pulses Back: Nontender, Normal Inspection. Extremities: There is lateral malleolus tenderness on the right, no laxity neurovascularly intact. She has some knee tenderness but full range of motion without any laxity. Left wrist shows minimal tenderness with no edema or swelling. Skin: No abrasions, no lacerations Neurological: Normal strength and sensation Const Vital Signs: 12/30/21 13:31 Temperature 96.9 F L Temperature Source Temporal Pulse Rate 82 Respiratory Rate 18 Blood Pressure 139/107 H Blood Pressure Mean 117 Pulse Ox 97 Oxygen Delivery Method Room Air MDM MDM Radiography Diagnostic Testing: Right ankle x-ray read by me is normal Treatment and Re-Evaluation Narrative: Ankle was whit-rayed. Patient will be discharged with reassurance and an Aircast Discharge Plan Triage Chief Complaint: Lower Extremity Injury ED Provider: Austen Dejesus Dx/Rx/DC Orders Clinical Impression: Fall, Right ankle sprain Instructions: ED Ankle Sprain (Adult) Prescriptions: No Action gabapentin 300 MG capsule 600 mg PO TIDCM Label Comments: neuropathy/pain fluoxetine [Prozac] 20 MG capsule 40 mg PO DAILY metformin 500 MG tablet,ER angela.retention 24 hr 1,000 mg PO DAILY atorvastatin 40 mg tablet 40 mg PO QHS Label Comments: take 1 tablet by mouth once daily aspirin 81 mg tablet,delayed release (DR/EC) 81 mg PO DAILY glimepiride 1 mg tablet 1 mg PO DAILY Label Comments: take 1 tablet by mouth daily with breakfast metoprolol succinate 25 mg tablet extended release 24 hr 25 mg PO DAILY Label Comments: take 1 tablet by mouth once daily loratadine 10 mg tablet 10 mg PO DAILY ranolazine 500 mg tablet extended release 12 hr 500 mg PO BID Label Comments: take 1 tablet by mouth twice a day hydrocodone-acetaminophen 5-325 mg tablet 1 tab PO Q6H PRN (Reason: pain) 3 Days Qty: 10 0RF cyclobenzaprine 10 mg tablet 10 mg PO BID PRN (Reason: muscle spasm) Qty: 10 0RF Primary Care Provider: Cherelle Gurrola Referrals: Cherelle Gurrola PA [Primary Care Provider] - 3-5 Days Disposition Disposition: Home, Self Care
[2021-12-30 14:59] VITALS: PULSE 88; RESP 17; O2SAT 98
== END 2021-12-30 15:00 | disposition home or self-care (01) ==
PROVIDERS: Emergency Provider Emergency Medicine; PCP Physician Assistant; Visit Provider Emergency Medicine
DX: S93.401A Sprain of unspecified ligament of right ankle, initial encounter (principal); E11.9 Type 2 diabetes mellitus without complications; M25.561 Pain in right knee; M25.532 Pain in left wrist; W19.XXXA Unspecified fall, initial encounter; I10 Essential (primary) hypertension; Z79.82 Long term (current) use of aspirin; Z79.84 Long term (current) use of oral hypoglycemic drugs; Z79.899 Other long term (current) drug therapy; Z87.891 Personal history of nicotine dependence
CPT/HCPCS: 73610; 99283

== ENCOUNTER 2022-07-14 18:20 | Emergency (ER) | payer MEDICAID, SELFPAY ==
[2022-07-14 18:22] VITALS: BP 133/117; PULSE 90; RESP 18; TEMP 35.7; O2SAT 97
--- NOTE | 2022-07-14 18:24 | RAD_ITS ---
INDICATION: Injury, unable to fully extend right knee EXAMINATION/TECHNIQUE: X-RAY - RIGHT XR Knee 3 Views 3 VIEWS COMPARISON: 12/25/2021 FINDINGS: SOFT TISSUES: Circumferential soft tissue swelling. No radiopaque foreign body. BONES/JOINTS: No acute fracture or subluxation. Normal alignment. Tricompartmental joint space narrowing and osteophytes. Small suprapatellar effusion. No sclerotic or destructive changes observed. RAD/Knee 3 Views IMPRESSION: Suprapatellar knee joint effusion and soft tissue swelling suspicious for soft tissue injury. No finding of fracture or dislocation. Electronically Signed: Austen Bangura MD at 18:49 EDT ,
[2022-07-14 19:52] VITALS: BMI 38.5
--- NOTE | 2022-07-14 20:06 | ED.VIS.LOWEX ---
HPI History of Present Illness Chief Complaint: Lower Extremity Injury Informant: patient Narrative Narrative: Patient is a 51-year-old female with history of diabetes, anxiety and depression and hypertension presenting with atraumatic right knee pain and swelling. Patient states she sleeps on her stomach. Yesterday morning around 6 AM she moved her leg to try to move her dog when she suddenly felt ripping/tearing sensation in the back of her right knee. She has had swelling since. She is really not been able to walk or get around. She watches her grandchildren during the day which is what she could come in until now. Patient states she took 2 extra take Tylenol as well as 600 mg of Motrin a couple times throughout the day and has not been able to get the pain under control. Has no numbness or tingling. Has no other complaints at this time. Denies any falls or other injury. [facility] Medical History Anxiety COVID Depression Diabetes Former smoker Hypertension Home Medications gabapentin 300 mg capsule 600 mg PO TIDCM 06/10/14 [History Last Taken Unknown] fluoxetine 20 mg capsule (Prozac) 40 mg PO DAILY 08/04/17 [History Last Taken Unknown] metformin 500 mg 24 hr tablet,extended release 1,000 mg PO DAILY 08/04/17 [History Last Taken Unknown] aspirin 81 mg tablet,delayed release 81 mg PO DAILY 12/25/21 [History Last Taken Unknown] atorvastatin 40 mg tablet 40 mg PO QHS 12/25/21 [History Last Taken Unknown] cyclobenzaprine 10 mg tablet 10 mg PO BID PRN muscle spasm #10 tabs 12/25/21 [Rx Last Taken Unknown] glimepiride 1 mg tablet 1 mg PO DAILY 12/25/21 [History Last Taken Unknown] hydrocodone-acetaminophen 5-325mg 5mg-325mg 1 tab PO Q6H PRN pain 3 days #10 tabs 12/25/21 [Rx Last Taken Unknown] loratadine 10 mg tablet 10 mg PO DAILY 12/25/21 [History Last Taken Unknown] metoprolol succinate 25 mg tablet,extended release 24 hr 25 mg PO DAILY 12/25/21 [History Last Taken Unknown] ranolazine 500 mg tablet,extended release,12 hr 500 mg PO BID 12/25/21 [History Last Taken Unknown] oxycodone-acetaminophen 5 mg-325 mg tablet (Percocet) 1 tab PO Q6H PRN pain 3 days #12 tabs 07/14/22 [Rx Last Taken Unknown] Allergy/AdvReac Type Severity Reaction Status Date / Time STEFF Inhibitors Allergy wheezing Verified 07/14/22 18:22 amoxicillin trihydrate Allergy Itching Verified 07/14/22 18:22 [From Augmentin] lisinopril Allergy wheezing Verified 07/14/22 18:22 potassium clavulanate Allergy Itching Verified 07/14/22 18:22 [From Augmentin] ibuprofen AdvReac Other Verified 07/14/22 18:22 Surgical History History of cholecystectomy History of hysterectomy Social History Smoking Status: Former smoker ROS ROS ED Constitutional Constitutional ED: Denies chills or fever(s) Eyes Eyes: Denies blurry vision ENT ENT ED: Denies sore throat Cardiovascular Cardiovascular: Denies chest pain Respiratory/Chest Respiratory/Chest: Denies cough Gastrointestinal Gastrointestinal: Denies abdominal pain or vomiting Musculoskeletal Musculoskeletal: Reports other Details: Right knee pain and swelling ; Denies arthralgias or back pain Integumentary Denies rash Neurologic Neurologic: Denies headache(s), paresthesias or weakness Psychiatric Psychiatric: Reports anxiety Hematologic/Lymphatic Hematologic/Lymphatic: Denies easy bleeding or easy bruising EXAM Physical Exam Const Vital Signs: 07/14/22 18:22 Temperature 96.2 F L Temperature Source Temporal Pulse Rate 90 Respiratory Rate 18 Blood Pressure 133/117 H Blood Pressure Mean 122 Pulse Ox 97 Oxygen Delivery Method Room Air Positive well nourished and well developed General Appearance ED: well developed and NAD HEENT Reports moist mucous membranes normocephalic and atraumatic Neck full ROM and supple Chest Wall inspection of chest normal Resp normal respiratory effort Cardio regular rate, regular rhythm and no murmurs Extremity Extremity Narrative: Nonpitting edema of the right lower extremity. Effusion of the right knee and suprapatellar region. Patella is in normal position is not high riding or low riding. Diffuse tenderness palpation. Not able to perform stability testing secondary to pain. Patient is not able to raise her straight leg off the bed. No palpable cords appreciated. Compartments are soft. 2+ DP pulse. General Extremety ED: Yes weight-bearing difficulty General Extremity: weight-bearing difficulty Neuro oriented x3 and moves all extremities Sensorium / Orientation: alert Motor Exam: Negative for general weakness Psych mental status grossly normal Psych Narrative: Tearful Skin no wounds Rashes: no rashes MDM MDM MDM Narrative Medical decision making narrative: Patient evaluated for right knee pain and swelling. Patient does have an effusion. X-ray which was ordered in the waiting room per nursing protocol interpreted by myself as well as radiology. It does show suprapatellar knee joint effusion and soft tissue swelling consistent with soft tissue injury. No associated bony abnormality. Differential includes knee sprain, quadricep tendon injury, ruptured Robertson's cyst as well as DVT given the asymmetric edema and pain. Venous duplex is negative for DVT. She does have a fluid collection behind her knee but no signs of rupture. Patient was given oxycodone and is able to only lift her leg off the bed about an inch. She tries to ambulate without any assistance and does have significant pain. Patient be given a dose of IM morphine for pain control. Will be given a knee immobilizer in case she does have a partial quadricep tendon injury as well as a walker. Is given outpatient orthopedic follow-up. Patient is neurovascular intact distally with normal pedal pulses. I do not think she requires admission at this time. Patient be discharged home with a short course of pain medicine for symptom control. Radiography Diagnostic Testing: Clinical Impression(s) from Imaging Studies Knee X-Ray 07/14/22 18:24 IMPRESSION: Suprapatellar knee joint effusion and soft tissue swelling suspicious for soft tissue injury. No finding of fracture or dislocation. Electronically Signed: Austen Bangura MD at 18:49 EDT , Venous Duplex 07/14/22 20:09 IMPRESSION: No finding of DVT. Medial posterior knee fluid collection, perhaps Robertson''s cyst. Electronically Signed: Austen Bangura MD at 21:08 EDT , Discharge Plan Triage Chief Complaint: Lower Extremity Injury ED Provider: Renata Maravilla Dx/Rx/DC Orders Clinical Impression: Right knee injury, Effusion of right knee joint Instructions: ED Knee Pain of Uncertain Cause, ED Knee Effusion Prescriptions: New oxycodone-acetaminophen [Percocet] 5-325 mg tablet 1 tab PO Q6H PRN (Reason: pain) 3 Days Qty: 12 0RF No Action gabapentin 300 MG capsule 600 mg PO TIDCM Label Comments: neuropathy/pain fluoxetine [Prozac] 20 MG capsule 40 mg PO DAILY metformin 500 MG tablet,ER angela.retention 24 hr 1,000 mg PO DAILY atorvastatin 40 mg tablet 40 mg PO QHS Label Comments: take 1 tablet by mouth once daily aspirin 81 mg tablet,delayed release (DR/EC) 81 mg PO DAILY glimepiride 1 mg tablet 1 mg PO DAILY Label Comments: take 1 tablet by mouth daily with breakfast metoprolol succinate 25 mg tablet extended release 24 hr 25 mg PO DAILY Label Comments: take 1 tablet by mouth once daily loratadine 10 mg tablet 10 mg PO DAILY ranolazine 500 mg tablet extended release 12 hr 500 mg PO BID Label Comments: take 1 tablet by mouth twice a day hydrocodone-acetaminophen 5-325 mg tablet 1 tab PO Q6H PRN (Reason: pain) 3 Days Qty: 10 0RF cyclobenzaprine 10 mg tablet 10 mg PO BID PRN (Reason: muscle spasm) Qty: 10 0RF Primary Care Provider: Cherelle Gurrola Referrals: Marcus Mauricio MD [Med Staff - Active Staff] - 5-7 Days Cherelle Gurrola PA [Primary Care Provider] - Activity Restrictions/Additional Instructions: No blood clot seen on your ultrasound. Your x-ray showed arthritis as well as swelling above the knee joint. I am concerned that you might of injured your quadricep tendon. Use the knee immobilizer. Weightbearing as tolerated. Use a walker to help with ambulation. You may alternate ibuprofen with the pain pill prescribed today. Take stool softener such as Colace or MiraLAX to help with opioid associated constipation. Follow-up with orthopedics next week Disposition Disposition: Home, Self Care
--- NOTE | 2022-07-14 20:09 | US_ITS ---
STUDY: VENOUS DOPPLER ULTRASOUND - RIGHT LOWER EXTREMITY REASON FOR EXAM: Female, 51 years old. Undefined -- SWELLING TECHNIQUE: Ultrasound evaluation of the deep vein system to include chavira-scale imaging and compression was performed. Chavira-scale imaging and Doppler sonographic evaluation, including duplex spectral analysis and qualitative color flow sonography, was performed. COMPARISON: None. FINDINGS: Common Femoral Vein: Normal compression. Normal color Doppler. Common Femoral Vein/Greater Saphenous Junction: Normal compression. Deep Femoral Vein: Not assessed Femoral Proximal: Normal compression. Femoral Middle: Normal compression. Normal color Doppler. Femoral Distal: Normal compression. Popliteal Vein: Normal compression. Normal color Doppler. Posterior Tibial Vein: Normal compression. Peroneal Vein: Normal compression. Normal appearance of the left common femoral vein for comparison. There is no demonstrated deep venous thrombosis. 8.5 x 5.1 x 1.9 cm posterior medial knee fluid collection. US/Venous Duplex Imag/Limited/Uni IMPRESSION: No finding of DVT. Medial posterior knee fluid collection, perhaps Robertson''s cyst. Electronically Signed: Austen Bangura MD at 21:08 EDT ,
[2022-07-14] MEDS: oxyCODONE 5 MG Tablet PO (20:17)
[2022-07-14] MEDS: morphine 10 MG/ML Syringe 8 MG IM (21:55)
== END 2022-07-14 23:08 | disposition home or self-care (01) ==
PROVIDERS: Emergency Provider Emergency Medicine; PCP Physician Assistant; Visit Provider Emergency Medicine
DX: M25.461 Effusion, right knee (principal); E11.9 Type 2 diabetes mellitus without complications; S89.91XA Unspecified injury of right lower leg, initial encounter; X58.XXXA Exposure to other specified factors, initial encounter; Y93.84 Activity, sleeping; I10 Essential (primary) hypertension; Z79.84 Long term (current) use of oral hypoglycemic drugs; Z79.82 Long term (current) use of aspirin; Z79.899 Other long term (current) drug therapy; Z87.891 Personal history of nicotine dependence
CPT/HCPCS: 73562; 93971; 96372; 99283

== ENCOUNTER 2023-10-08 14:01 | Emergency (ER) | payer MEDICAID, SELFPAY ==
[2023-10-08 14:03] VITALS: BP 123/101; PULSE 83; RESP 22; TEMP 36.1; O2SAT 97; BMI 36.0
--- NOTE | 2023-10-08 14:12 | ED.RN ---
After triage when pt was told there was a wait, pt stated she couldn't wait and was going to go somewhere else.
== END 2023-10-08 14:10 | disposition left against medical advice (07) ==
LOC: ED 14:11
PROVIDERS: PCP Physician Assistant
DX: R10.12 Left upper quadrant pain (principal); R11.0 Nausea; Z53.21 Procedure and treatment not carried out due to patient leaving prior to being seen by health care provider

== ENCOUNTER 2025-02-10 14:00 | Emergency (ER) | payer MEDICAID, SELFPAY ==
[2025-02-10] VITALS (7 sets, daily range): BP systolic 130–162; BP diastolic 79–98; PULSE 68–86; RESP 10–20; TEMP 36.8–36.9; O2SAT 93–99; BMI 35.4
--- NOTE | 2025-02-10 14:21 | RAD_ITS ---
PROCEDURE: CHEST 1 VIEW (PORTABLE) 02/10/2025 REASON FOR EXAM: CHEST PAIN TECHNIQUE: Frontal view of the chest. COMPARISON: None FINDINGS: Bibasilar subsegmental atelectasis. No focal consolidation. No pleural effusion or pneumothorax. Cardiac silhouette is within normal limits. No acute fractures. RAD/Chest 1 View (Portable) IMPRESSION: Bibasilar subsegmental atelectasis. No focal consolidation. Reading Location: [id number]
--- NOTE | 2025-02-10 14:21 | EKG12_ITS ---
Test Reason : CP Blood Pressure : */* mmHG Vent. Rate : 73 BPM Atrial Rate : 73 BPM P-R Int : 188 ms QRS Dur : 74 ms QT Int : 376 ms P-R-T Axes : 42 -10 31 degrees QTcB Int : 414 ms Normal sinus rhythm Normal ECG Confirmed by Oleg Banuelos ([id number]), film and video editor XOCHITL HOLLIS ([id number]) on 02/11/2025 1:44:43 PM Referred By: [facility] Confirmed By: Oleg Banuelos
--- NOTE | 2025-02-10 14:22 | EDS_ITS ---
HPI History of Present Illness Chief Complaint: Chest Pain Detail of Chief Complaint: Chest pain and cough Informant: patient Narrative Narrative: Patient presents to the emergency department with complaint of feeling sick for the last 2 months. Patient states that she developed upper respiratory symptoms 2 months ago and went to urgent care was given prednisone but she can only take it for 2 days because it made her angry and did not feel well with her. Patient complains of continued cough that is productive of some clear phlegm at times. She been wheezing at times. Few days ago started having intermittent chest discomfort that was sharp and stabbing at times at times radiating to the back and to her left shoulder. At times pain worse with deep breath and movement. She is not sure if her chest pain is related to her respiratory symptoms. She denies recent travel or surgery. She went to urgent care today and was referred to the emergency department. She has no history of PE or DVT. She tells me years ago she had a heart attack that required angioplasty but has no stenting. 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 Patient is a diabetic and has history of hypertension [facility] Medical History Anxiety COVID Depression Diabetes Former smoker Hypertension Home Medications ?Medication ?Instructions ?Recorded ?Last Taken ?Type gabapentin 300 mg capsule 600 mg PO TIDCM 06/10/14 Unk nown History fluoxetine 20 mg capsule (Prozac) 40 mg PO DAILY 08/04 Unknown History metformin 500 mg 24 hr 1,000 mg PO DAILY 08/04/17 U nknown History tablet,extended release (gastric retention) aspirin 81 mg tablet,delayed 81 mg PO DAILY 12/25/21 U nknown History release atorvastatin 40 mg tablet 40 mg PO QHS 12/25/21 Unknow n History cyclobenzaprine 10 mg tablet 10 mg PO BID PRN muscle s pasm #10 12/25/21 Unknown Rx tabs glimepiride 1 mg tablet 1 mg PO DAILY 12/25/21 Unkno wn History loratadine 10 mg tablet 10 mg PO DAILY 12/25/21 Unkn own History metoprolol succinate 25 mg 25 mg PO DAILY 12/25/21 Unk nown History tablet,extended release 24 hr ranolazine 500 mg tablet,extended 500 mg PO BID Unknown History release,12 hr oxycodone-acetaminophen 5 mg-325 1 tab PO Q6H PRN pain 3 days #12 07/14/22 Unknown Rx mg tablet (Percocet) tabs doxycycline monohydrate 100 mg 100 mg PO BID #20 CAPSU LES 02/10/25 Unknown Rx capsule Allergy/AdvReac Type Severity Reaction Status Date / Time STEFF Inhibitors Allergy wheezing Verified 02/10/25 14:03 amoxicillin trihydrate (From Allergy Itching Verified 02/10/25 14:03 Augmentin) lisinopril Allergy wheezing Verified 02/10/25 14:03 potassium clavulanate (From Allergy Itching Verified 02/10/25 14:03 Augmentin) ibuprofen AdvReac Other Verified 02/10/25 14:03
--- NOTE | 2025-02-10 14:22 | ED.VIS.CHEST ---
HPI History of Present Illness Chief Complaint: Chest Pain Detail of Chief Complaint: Chest pain and cough Informant: patient Narrative Narrative: Patient presents to the emergency department with complaint of feeling sick for the last 2 months. Patient states that she developed upper respiratory symptoms 2 months ago and went to urgent care was given prednisone but she can only take it for 2 days because it made her angry and did not feel well with her. Patient complains of continued cough that is productive of some clear phlegm at times. She been wheezing at times. Few days ago started having intermittent chest discomfort that was sharp and stabbing at times at times radiating to the back and to her left shoulder. At times pain worse with deep breath and movement. She is not sure if her chest pain is related to her respiratory symptoms. She denies recent travel or surgery. She went to urgent care today and was referred to the emergency department. She has no history of PE or DVT. She tells me years ago she had a heart attack that required angioplasty but has no stenting. 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 Patient is a diabetic and has history of hypertension [facility] Medical History Anxiety COVID Depression Diabetes Former smoker Hypertension Home Medications ?Medication ?Instructions ?Recorded ?Last Taken ?Type gabapentin 300 mg capsule 600 mg PO TIDCM 06/10/14 Unknown History fluoxetine 20 mg capsule (Prozac) 40 mg PO DAILY 08/04/17 Unknown History metformin 500 mg 24 hr 1,000 mg PO DAILY 08/04/17 Unknown History tablet,extended release (gastric retention) aspirin 81 mg tablet,delayed 81 mg PO DAILY 12/25/21 Unknown History release atorvastatin 40 mg tablet 40 mg PO QHS 12/25/21 Unknown History cyclobenzaprine 10 mg tablet 10 mg PO BID PRN muscle spasm #10 12/25/21 Unknown Rx tabs glimepiride 1 mg tablet 1 mg PO DAILY 12/25/21 Unknown History loratadine 10 mg tablet 10 mg PO DAILY 12/25/21 Unknown History metoprolol succinate 25 mg 25 mg PO DAILY 12/25/21 Unknown History tablet,extended release 24 hr ranolazine 500 mg tablet,extended 500 mg PO BID 12/25/21 Unknown History release,12 hr oxycodone-acetaminophen 5 mg-325 1 tab PO Q6H PRN pain 3 days #12 07/14/22 Unknown Rx mg tablet (Percocet) tabs doxycycline monohydrate 100 mg 100 mg PO BID #20 CAPSULES 02/10/25 Unknown Rx capsule Allergy/AdvReac Type Severity Reaction Status Date / Time STEFF Inhibitors Allergy wheezing Verified 02/10/25 14:03 amoxicillin trihydrate (From Allergy Itching Verified 02/10/25 14:03 Augmentin) lisinopril Allergy wheezing Verified 02/10/25 14:03 potassium clavulanate (From Allergy Itching Verified 02/10/25 14:03 Augmentin) ibuprofen AdvReac Other Verified 02/10/25 14:03 Family History no significant family his Surgical History History of cholecystectomy History of hysterectomy Social History Smoking Status: Current some day smoker tobacco type: pipe ROS ROS ED Review of Systems ROS Unobtainable: other Constitutional Constitutional ED: Reports lethargy; Denies chills, fever(s), sweats or weight loss Eyes Eyes: Denies blurry vision, change in vision or diplopia ENT ENT ED: Denies rhinorrhea or sore throat Cardiovascular Cardiovascular: Reports chest pain; Denies orthopnea or racing heartbeat Respiratory/Chest Respiratory/Chest: Reports cough, dyspnea, dyspnea on exertion and sputum; Denies orthopnea Gastrointestinal Gastrointestinal: Denies abdominal pain, diarrhea, nausea or vomiting Genitourinary Genitourinary ED: Denies dysuria, hematuria or urinary frequency Musculoskeletal Musculoskeletal: Denies arthralgias, back pain, myalgias or neck pain Integumentary Denies abscess, Abrasions or rash Neurologic Neurologic: Denies headache(s) or weakness Psychiatric Psychiatric: Denies anxiety, depression or suicidal thoughts Endocrine Endocrinology: Denies polydipsia, polyphagia or polyuria Hematologic/Lymphatic Hematologic/Lymphatic: Denies easy bleeding, easy bruising or lymphadenopathy Allergic/Immunologic Allergic/Immunologic ED: Denies mouth swelling, tongue swelling or urticaria EXAM Physical Exam Const Vital Signs: 02/10/25 14:01 02/10/25 14:03 02/10/25 14:21 Temperature 98.4 F 98.4 F Temperature Source Oral Oral Pulse Rate 86 83 Respiratory Rate 20 H 15 Blood Pressure 151/79 H 162/90 H Blood Pressure Mean 103 114 Pulse Ox 98 98 97 Oxygen Delivery Method Room Air Room Air Room Air 02/10/25 15:01 02/10/25 16:01 02/10/25 17:00 Temperature Temperature Source Pulse Rate 72 68 68 Respiratory Rate 16 10 L 10 L Blood Pressure 130/84 H 150/87 H Blood Pressure Mean 99 108 Pulse Ox 99 97 93 Oxygen Delivery Method Room Air Room Air Positive well nourished and well developed General Appearance ED: well developed and NAD HEENT Reports TM's clear and moist mucous membranes normocephalic and atraumatic; Negative for trauma or tenderness Tympanic Membrane ED: Yes TM's clear Eyes PERRL and EOMs intact bilaterally General Eye ED: Negative for pale conjunctiva or scleral icterus Neck no lymphadenopathy, supple and no JVD General: Negative for tenderness Chest Wall inspection of chest normal; Negative for palpation of chest normal Chest Narrative: Mild tenderness to the left anterior chest wall that somewhat reproduces her pain. Chest: Negative for tenderness Resp normal respiratory effort and clear to auscultation bilaterally Effort and Inspection: Negative for respiratory distress or pain with movement Auscultation: Negative for rhonchi, wheezes or diminished lung sounds Cardio regular rate, regular rhythm, S1 normal heart sound, S2 normal heart sound and no murmurs Peripheral Pulses: pulses 2+ throughout GI normal to inspection, nondistended, normoactive bowel sounds, soft to palpation, non-tender, non-distended and no masses Back/Spine no CVA tenderness and no thoracic nor lumbar tenderness Extremity normal to inspection General Extremety ED: Negative for edema General Extremity: Negative for edema Neuro oriented x3, CN's II-XII intact bilaterally, no sensory deficits noted and gait normal Sensorium / Orientation: awake, alert, oriented to person, oriented to place and oriented to time Motor Exam: strength 5/5 throughout and strength abnormal Psych mental status grossly normal Skin no rashes or lesions noted and no wounds MDM MDM MDM Narrative Medical decision making narrative: Patient presents with cough and shortness of breath and now some chest discomfort intermittently. Clinically looks well. History of coronary artery disease and history of asthma. No significant wheezing on exam. IV line established. EKG obtained on arrival showed a sinus rhythm with rate of 73 bpm with no acute ST segment changes. Chest x-ray unremarkable. CBC with differential shows a white count of 9.5 with hemoglobin of 14.4 and platelet count of 252. Chemistries unremarkable. Troponin was 11. Will await a delta troponin at 2 hours although suspicion low for acute coronary syndrome. 2-hour delta troponin was negative. 1 view chest x-ray unremarkable with no evidence for pneumonia. Clinically she looks well. I do not feel she is having acute coronary syndrome. Suspect a upper respiratory infection and given the length of time of symptoms we will go ahead and cover with doxycycline. Recommend follow-up with her primary care physician within the next 3 to 5 days. Lab Data Attestation: I reviewed the patient's lab results. Labs: Laboratory Results - last 24 hr 02/10/25 02/10/25 14:15 16:22 WBC 9.5 RBC 4.37 Hgb 14.4 Hct 40.0 MCV 91.5 MCH 33.0 H MCHC 36.0 RDW Std Deviation 41.2 RDW Coeff of Julian 12.3 Plt Count 252 MPV 10.7 Immature Gran % (Auto) 0.300 Neut % (Auto) 46.0 L Lymph % (Auto) 46.6 H Erath % (Auto) 4.8 Eos % (Auto) 2.0 Baso % (Auto) 0.3 Absolute Neuts (auto) 4.3 Absolute Lymphs (auto) 4.37 Nucleated RBC % 0 D-Dimer Quant (PE/DVT) 0.42 Sodium 136 Potassium 4.1 Chloride 101 Carbon Dioxide 22.1 Anion Gap 13 BUN 18 Creatinine 0.82 Estim Creat Clear Calc 112.22 Est GFR (MDRD) Non-Af 86 BUN/Creatinine Ratio 21.5 H Glucose 231 H Calcium 9.0 Troponin T High Sens 11 Troponin T Hi Sens 2 Hr 10 Radiography Diagnostic Testing: Clinical Impression(s) from Imaging Studies Chest X-Ray 02/10/25 14:21 IMPRESSION: Bibasilar subsegmental atelectasis. No focal consolidation. Reading Location: [facility] 1 view chest x-ray obtained interpreted by myself as no evidence of infiltrate or pneumothorax or acute disease process. Radiology in agreement. EKG Initial EKG: Attestation: I personally reviewed and interpreted this EKG as follows: Comments: Sinus rhythm with rate of 73 bpm with no acute ST segment changes Prior EKG tracings: available for review Prior: Unchanged Discharge Plan Triage Chief Complaint: Chest Pain ED Provider: Lainey Raymond Dx/Rx/DC Orders Clinical Impression: URI, acute, Chest pain Instructions: ED Upper Resp Infec Abx Tx, ED Chest Pain, Uncertain Cause Prescriptions: New doxycycline monohydrate 100 mg capsule 100 mg PO BID Qty: 20 0RF No Action gabapentin 300 MG capsule 600 mg PO TIDCM Patient Comments: neuropathy/pain fluoxetine [Prozac] 20 MG capsule 40 mg PO DAILY metformin 500 MG tablet,ER angela.retention 24 hr 1,000 mg PO DAILY atorvastatin 40 mg tablet 40 mg PO QHS Patient Comments: take 1 tablet by mouth once daily aspirin 81 mg tablet,delayed release (DR/EC) 81 mg PO DAILY glimepiride 1 mg tablet 1 mg PO DAILY Patient Comments: take 1 tablet by mouth daily with breakfast metoprolol succinate 25 mg tablet extended release 24 hr 25 mg PO DAILY Patient Comments: take 1 tablet by mouth once daily loratadine 10 mg tablet 10 mg PO DAILY ranolazine 500 mg tablet extended release 12 hr 500 mg PO BID Patient Comments: take 1 tablet by mouth twice a day cyclobenzaprine 10 mg tablet 10 mg PO BID PRN (Reason: muscle spasm) Qty: 10 0RF oxycodone-acetaminophen [Percocet] 5-325 mg tablet 1 tab PO Q6H PRN (Reason: pain) 3 Days Qty: 12 0RF Primary Care Provider: Dominique Palmer NP Referrals: Dominique Palmer NP, [facility] [Primary Care Provider, Medical] - 3-5 Days Print Language: Estonian Disposition Disposition: Home, Self Care
[2025-02-10] MEDS: 0.9% Normal Saline (1000mL) 1,000 ML 150 ML IV (14:33)
[2025-02-10 14:37] LABS: Hematocrit 40.0 % (37-47); Hemoglobin 14.4 g/dL (12.0-15.0); Mean Corp Hgb Conc 36.0 g/dL (32-36); Mean Corpuscular Volume 91.5 fL (81-99); Mean Platelet Vol. 10.7 fl (6.2-12.0); NRBC Flagged by Analyzer 0 % (0-5); Platelet Count 252 K/mm3 (150-450); RBC Distribution Width CV 12.3 % (11.6-14.6); RBC Distribution Width SD 41.2 fl (35.1-43.9); Red Blood Count 4.37 M/mm3 (4.2-5.4); White Blood Count 9.5 K/mm3 (4.4-11.0)
[2025-02-10 14:42] LABS: Immature Granulocytes Count 0.030 X10^3/uL (0.0-0.0)
[2025-02-10 14:45] LABS: D-Dimer Quantitative (DVT/PE) 0.42 FEU/ug/m (0.27-0.49)
[2025-02-10 15:30] LABS: Anion Gap 13 (5-15); BUN 18 mg/dL (4-19); BUN/Creat Ratio 21.5 RATIO (10-20); Calcium,Total 9.0 mg/dL (7.6-11.0); Carbon Dioxide 22.1 mmol/L (21.0-32.0); Chloride 101 mmol/L (98-108); Estimated Creatinine Clearance 112.22 ml/min (50-250); Glucose 231 mg/dL (70-99); Potassium 4.1 mmol/L (3.3-5.1); Troponin T High Sensitivity 11 ng/L (<=14)
[2025-02-10 16:42] LABS: Troponin T High Sens 2 HR 10 ng/L (<=14)
== END 2025-02-10 17:34 | disposition home or self-care (01) ==
PROVIDERS: Emergency Provider Emergency Medicine; PCP Registered Nurse; Visit Provider Emergency Medicine
DX: J06.9 Acute upper respiratory infection, unspecified (principal); E11.9 Type 2 diabetes mellitus without complications; R07.89 Other chest pain; I10 Essential (primary) hypertension; I25.10 Atherosclerotic heart disease of native coronary artery without angina pectoris; J45.909 Unspecified asthma, uncomplicated; I25.2 Old myocardial infarction; F17.290 Nicotine dependence, other tobacco product, uncomplicated; Z79.82 Long term (current) use of aspirin; Z79.84 Long term (current) use of oral hypoglycemic drugs; Z79.899 Other long term (current) drug therapy; Z98.61 Coronary angioplasty status
CPT/HCPCS: 71045; 80048; 84484; 85025; 85379; 93005; 96360; 96361; 99284; A4216

== ENCOUNTER 2025-02-17 16:23 | Emergency (ER) | payer MEDICAID, SELFPAY ==
[2025-02-17 16:24] VITALS: BP 125/85; PULSE 80; RESP 16; TEMP 36.8; O2SAT 99
--- NOTE | 2025-02-17 16:31 | RAD_ITS ---
PROCEDURE: RAD/Foot min 3 Views
[2025-02-17] MEDS: HYDROcodone Bitartrate/Apap 5/325 Tablet PO (17:03)
--- NOTE | 2025-02-17 17:52 | EX.ED.DYSGE1 ---
HPI History of Present Illness Chief Complaint: Lower Extremity Injury Detail of Chief Complaint: Injury to the 3rd, 4th and 5th right toe after kicking bedpost Informant: patient Onset/Context/Timing Onset: Yesterday Context: Sudden Onset Timing: Continuous Quality: Pain Location: 3rd through 5th right toe Current Severity: Mild Maximum Severity: Severe Worsened by: Movement, palpation and weightbearing Relieved by: Nothing Associated Symptoms Associated Symptoms: None Narrative Narrative: patient is a 54-year-old woman who presents with pain to her toes due to blunt trauma. She denies paresthesia, anesthesia buttocks. She is diabetic. She does not have diabetic neuropathy nor does she have symptoms of claudication. He she presents because of increased pain Recent Illness/Hospitalization: No [facility] Medical History Former smoker Diabetes Hypertension Anxiety Depression COVID Home Medications ?Medication ?Instructions ?Recorded ?Last Taken ?Type gabapentin 300 mg capsule 600 mg PO TIDCM 06/10/14 Unknown History fluoxetine 20 mg capsule (Prozac) 40 mg PO DAILY 08/04/17 Unknown History metformin 500 mg 24 hr 1,000 mg PO DAILY 08/04/17 Unknown History tablet,extended release (gastric retention) aspirin 81 mg tablet,delayed 81 mg PO DAILY 12/25/21 Unknown History release atorvastatin 40 mg tablet 40 mg PO QHS 12/25/21 Unknown History cyclobenzaprine 10 mg tablet 10 mg PO BID PRN muscle spasm #10 12/25/21 Unknown Rx tabs glimepiride 1 mg tablet 1 mg PO DAILY 12/25/21 Unknown History loratadine 10 mg tablet 10 mg PO DAILY 12/25/21 Unknown History metoprolol succinate 25 mg 25 mg PO DAILY 12/25/21 Unknown History tablet,extended release 24 hr ranolazine 500 mg tablet,extended 500 mg PO BID 12/25/21 Unknown History release,12 hr oxycodone-acetaminophen 5 mg-325 1 tab PO Q6H PRN pain 3 days #12 07/14/22 Unknown Rx mg tablet (Percocet) tabs doxycycline monohydrate 100 mg 100 mg PO BID #20 CAPSULES 02/10/25 Unknown Rx capsule hydrocodone-acetaminophen 5-325mg 1 tab PO Q6H PRN PRN Pain 3 days 02/17/25 Unknown Rx 5mg-325mg #10 TABLETS Allergy/AdvReac Type Severity Reaction Status Date / Time STEFF Inhibitors Allergy wheezing Verified 02/17/25 16:25 amoxicillin trihydrate (From Allergy Itching Verified 02/17/25 16:25 Augmentin) lisinopril Allergy wheezing Verified 02/17/25 16:25 potassium clavulanate (From Allergy Itching Verified 02/17/25 16:25 Augmentin) ibuprofen AdvReac Other Verified 02/17/25 16:25 Surgical History History of hysterectomy History of cholecystectomy Social History Smoking Status: Current some day smoker tobacco type: pipe ROS ROS ED Constitutional Constitutional ED: Denies chills, fever(s), subjective or sweats Eyes Eyes: Denies blurry vision or change in vision Gastrointestinal Gastrointestinal: Denies nausea or vomiting Musculoskeletal Musculoskeletal: Denies myalgias Integumentary Reports other Details: Discoloration of the second right toe and fifth right toe ; Denies rash Neurologic Neurologic: Denies paresthesias or weakness Hematologic/Lymphatic Hematologic/Lymphatic: Reports systems reviewed and no addt'l complaints, except as documented; Denies easy bleeding or easy bruising EXAM Physical Exam Const Vital Signs: 02/17/25 16:24 Temperature 98.3 F Temperature Source Oral Pulse Rate 80 Respiratory Rate 16 Blood Pressure 125/85 H Blood Pressure Mean 98 Pulse Ox 99 Oxygen Delivery Method Room Air Positive well nourished and well developed Constitutional Narrative: Patient's blood pressure slightly elevated. General Appearance ED: well developed and NAD HEENT HEENT Narrative: Head is atraumatic and normocephalic. Eyes PERRL and EOMs intact bilaterally General Eye ED: Negative for pale conjunctiva or scleral icterus Resp normal respiratory effort Cardio regular rate and regular rhythm Extremity Negative for normal to inspection Extremity Narrative: Pain to palpation over the 3rd, 4th and 5th toe. DP and PT pulse are palpable. Capillary fill is normal. Sensation in all of her toes. Neuro oriented x3 and CN's II-XII intact bilaterally Sensorium / Orientation: alert Psych mental status grossly normal Skin Skin Narrative: Bruising as previously described MDM MDM MDM Narrative Medical decision making narrative: Patient has pain of her 3rd, 4th and 5th right toes due to blunt injury. She kicked a bedpost last evening. Will obtain x-ray to rule out fracture versus contusion Radiography Chest X-Ray - ED: Read by ED Physician (Three-view x-ray of the foot reveals a nondisplaced intra-articular fracture of the MTP joint right fifth toe. The involvement is approximately 20% of the articular surface.) Diagnostic Testing: Clinical Impression(s) from Imaging Studies Foot X-Ray 02/17/25 16:31 IMPRESSION: Acute nondisplaced intra-articular fracture 5th proximal phalanx base. Reading Location: [facility] Treatment and Re-Evaluation :: Since she has never seen a fence installer helper or orthopedic surgeon she was referred to Dr. Rosa who is on-call for no doc she was treated with the toe luna taped to the fourth and postop shoe Discharge Plan Triage Chief Complaint: Lower Extremity Injury ED Provider: Catrachito Tilley Dx/Rx/DC Orders Clinical Impression: Closed fracture of proximal phalanx of toe of right foot, Type 2 diabetes mellitus Instructions: ED Closed Toe Fracture Prescriptions: New hydrocodone-acetaminophen 5-325 mg tablet 1 tab PO Q6H PRN PRN (Reason: Pain) 3 Days Qty: 10 0RF No Action gabapentin 300 MG capsule 600 mg PO TIDCM Patient Comments: neuropathy/pain fluoxetine [Prozac] 20 MG capsule 40 mg PO DAILY metformin 500 MG tablet,ER angela.retention 24 hr 1,000 mg PO DAILY atorvastatin 40 mg tablet 40 mg PO QHS Patient Comments: take 1 tablet by mouth once daily aspirin 81 mg tablet,delayed release (DR/EC) 81 mg PO DAILY glimepiride 1 mg tablet 1 mg PO DAILY Patient Comments: take 1 tablet by mouth daily with breakfast metoprolol succinate 25 mg tablet extended release 24 hr 25 mg PO DAILY Patient Comments: take 1 tablet by mouth once daily loratadine 10 mg tablet 10 mg PO DAILY ranolazine 500 mg tablet extended release 12 hr 500 mg PO BID Patient Comments: take 1 tablet by mouth twice a day cyclobenzaprine 10 mg tablet 10 mg PO BID PRN (Reason: muscle spasm) Qty: 10 0RF oxycodone-acetaminophen [Percocet] 5-325 mg tablet 1 tab PO Q6H PRN (Reason: pain) 3 Days Qty: 12 0RF doxycycline monohydrate 100 mg capsule 100 mg PO BID Qty: 20 0RF Stand Alone Forms: ED Work / School Excuse Primary Care Provider: Dominique Palmer NP Referrals: Oleg Rosa DPM [Med Staff - Active Staff, Podiatry] - 5-7 Days Dominique Palmer NP, [facility] [Primary Care Provider, Medical] Activity Restrictions/Additional Instructions: 1. Apply ice to your toes 6-8 times a day. 2. You may change the tape every 3 days. Print Language: Montenegrin Disposition Disposition: Home, Self Care
[2025-02-17 18:44] VITALS: BP 111/94; PULSE 71; RESP 18; TEMP 36.4; O2SAT 99
== END 2025-02-17 18:47 | disposition home or self-care (01) ==
PROVIDERS: Emergency Provider Emergency Medicine; PCP Registered Nurse; Visit Provider Emergency Medicine
DX: S92.511A Displaced fracture of proximal phalanx of right lesser toe(s), initial encounter for closed fracture (principal); E11.9 Type 2 diabetes mellitus without complications; I10 Essential (primary) hypertension; Z90.710 Acquired absence of both cervix and uterus; F41.9 Anxiety disorder, unspecified; Z79.84 Long term (current) use of oral hypoglycemic drugs; Z79.899 Other long term (current) drug therapy; Z79.82 Long term (current) use of aspirin; F32.A Depression, unspecified; W22.03XA Walked into furniture, initial encounter; Z90.49 Acquired absence of other specified parts of digestive tract; F17.290 Nicotine dependence, other tobacco product, uncomplicated
CPT/HCPCS: 73630; 99283